=== PATIENT | male | born 1945 | race Hispanic/Latino ===

== ENCOUNTER → 2019-01-22 | Outpatient (CLI) | payer MEDICARE, OTHER | END | disposition home or self-care (01) | LOC: C.SLEEP 17:51 | DX: G47.33 Obstructive sleep apnea (adult) (pediatric) (principal) ==

== ENCOUNTER 2019-03-06 17:55 | Outpatient (CLI) | payer MEDICARE, OTHER | END 2019-03-06 17:56 | disposition home or self-care (01) | LOC: C.SLEEP 17:56 ==